=== PATIENT | male | born 1960 | race Two or more races ===

== ENCOUNTER 2021-08-20 16:59 | Emergency (ER) | payer SELFPAY ==
[~2021-08-20] VITALS: Ht 172.7 cm; Wt 72.6 kg
[2021-08-20 17:02] VITALS: BP 148/101
== END 2021-08-20 17:50 | disposition home or self-care (01) ==
LOC: ER 16:59
DX: F10.10 Alcohol abuse, uncomplicated (principal); F17.210 Nicotine dependence, cigarettes, uncomplicated